=== PATIENT | male | born 1940 | race Caucasian/White ===

== ENCOUNTER → 2016-09-10 | Outpatient (CLI) | payer MEDICARE, OTHER ==
[2016-09-10 16:21] LABS: Blood Urea Nitrogen 24 mg/dL (9-20); Non-African American GFR(MDRD) >60 (>60 ml/min/1.73 sqM)
== END ==
LOC: LABWHC1 15:28
PROVIDERS: ATTEND Physical Medicine & Rehabilitation
DX: Z01.812 Encounter for preprocedural laboratory examination (principal); N28.9 Disorder of kidney and ureter, unspecified
CPT/HCPCS: 36415; 82565; 84520

== ENCOUNTER → 2018-04-22 | Outpatient (CLI) | payer MEDICARE, OTHER ==
[~2018-04-22] MED LIST: DENOSUMAB 60 MG/ML 1 ML SYRINGE SQ ONE
[2018-04-22 13:09] VITALS: BP 152/77; PULSE 67; RESP 16; TEMP 97.7
== END | disposition home or self-care (01) ==
LOC: PROCWHC3 12:49
PROVIDERS: ATTEND Internal Medicine
DX: M81.0 Age-related osteoporosis without current pathological fracture (principal)
CPT/HCPCS: 96372; J0897

== ENCOUNTER 2018-05-10 08:52 | Emergency (ER) | payer MEDICARE, OTHER ==
[2018-05-10 08:56] VITALS: BP 157/72; PULSE 72; RESP 18; TEMP 97.8
--- NOTE | 2018-05-10 09:07 | ED ---
General Adult HPI - General Chief complaint: Extremity Problem,Nontraumatic Stated complaint: Foot/Leg Swelling Time Seen by Provider: 05/10/18 09:00 Source: patient, RN notes reviewed Mode of arrival: wheelchair Limitations: no limitations - History of Present Illness Initial comments: Patient is a 77-year-old male presented to the emergency room today with a chief complaint of right ankle pain. Patient does admit that last night when up and felt fine woke up this morning went to put weight on the right ankle had pain. Does admit that his noticed some swelling when compared bilaterally. Denies any specific injury or trauma. He states that when he is resting has just a mild ankle when he tries to ambulate has increased pain that he feels in the ankle joint more on the lateral aspect. Patient denies any recent fever, chills, shortness of breath, chest pain, back pain, abdominal pain, nausea or vomiting, headaches or visual changes, or any other complaints. - Related Data Home Medications Medication Instructions Recorded Confirmed Alfuzosin HCl [Uroxatral ER] 10 mg PO BID 05/01/15 05/01/15 Cevimeline [Evoxac] 30 mg PO TID 05/01/15 05/01/15 Etodolac [Lodine] 400 mg PO BID 05/01/15 05/01/15 HYDROcodone/APAP 7.5-325MG [[place] 1 tab PO Q6HR PRN 05/01/15 05/01/15 7.5-325] Melatonin 3 mg PO HS PRN 05/01/15 05/01/15 Multivitamins, Thera [Multivitamin 1 tab PO DAILY@1200 05/01/15 05/01/15 (formulary)] cycloSPORINE [Restasis] 1 drop BOTH EYES BID 05/01/15 05/01/15 valACYclovir [Valtrex] 500 mg PO DAILY PRN 05/01/15 05/01/15 Previous Rx's Medication Instructions Recorded Albuterol Inhaler [Ventolin Hfa 1 - 2 puff INHALATION Q6HR PRN #1 05/04/15 Inhaler] inhaler Ipratropium [place] [Atrovent Hfa] 2 puff INHALATION QID #1 inhaler 05/04/15 Levofloxacin [Levaquin] 500 mg PO DAILY #5 tab 05/04/15 Allergies Allergy/AdvReac Type Severity Reaction Status Date / Time dipyridamole Allergy Anaphylaxis Verified 05/10/18 08:56 [From Persantine] Review of Systems ROS Statement: Those systems with pertinent positive or pertinent negative responses have been documented in the HPI. ROS Other: All systems not noted in ROS Statement are negative. Past Medical History Past Medical History: Cancer Additional Past Medical History / Comment(s): baretts esophagus, sojgrens, bladder cancer about 1994 History of Any Multi-Drug Resistant Organisms: None Reported Past Surgical History: Back Surgery, Joint Replacement, Orthopedic Surgery Additional Past Surgical History / Comment(s): left knee replacement, removed bladder ca Past Anesthesia/Blood Transfusion Reactions: No Reported Reaction Additional Past Anesthesia/Blood Transfusion Reaction / Comment(s): Never had either Past Psychological History: No Psychological Hx Reported Smoking Status: Former smoker Past Alcohol Use History: None Reported Past Drug Use History: None Reported - Past Family History Mother Family Medical History: No Reported History Father Family Medical History: No Reported History General Exam - General Exam Comments Initial Comments: General: The patient is awake and alert, in no distress, and does not appear acutely ill. Musculoskeletal: Patient does have some mild swelling down to the right ankle. No specific bony tenderness to the lateral or medial malleolus. No tenderness down into the right foot. Patient does have tenderness with inversion. Pedal pulses 2+. Sensation intact. Neurological: A&O x 3. CN II-XII intact, There are no obvious motor or sensory deficits. Coordination appears grossly intact. Speech is normal. Skin: Skin is warm and dry and no rashes or lesions are noted. Psychiatric: Normal mood and affect. Limitations: no limitations Course Vital Signs 05/10/18 08:54 Temperature 97.8 F Pulse Rate 72 Respiratory 18 Rate Blood Pressure 157/72 O2 Sat by Pulse 98 Oximetry Medical Decision Making - Medical Decision Making Patient's x-ray reviewed and is negative for any acute fracture dislocation. Results were discussed with the patient. Patient has mild swelling when compared bilaterally of the right ankle. There is no redness no sign of infection. Patient's vitals are stable. Patient will be discharged advised watch for any signs of infection. Advised follow-up family doctor/orthopedic over the next 2 days returning if symptoms increase or worsen. Disposition Clinical Impression: Ankle pain Disposition: HOME SELF-CARE Condition: Good Instructions: Swollen Joint (ED) Additional Instructions: Please use medication as discussed. Please follow-up with family doctor in the next 2-5 days of symptoms have not improved. Please return to emergency room if the symptoms increase or worsen or for any other concerns. Is patient prescribed a controlled substance at d/c from ED?: No Referrals: Timothy Arevalo MD [Primary Care Provider] - 1-2 days Time of Disposition: 09:41
--- NOTE | 2018-05-10 09:38 | XR ---
EXAMINATION TYPE: XR ankle complete RT , 3 VIEWS DATE OF EXAM ORDERED: 05/10/2018 HISTORY: Pain. COMPARISON: None. FINDINGS: No fracture, dislocation or ankle joint effusion is seen. There are mild degenerative meza es present in the talonavicular joint. IMPRESSION: 1. NO ACUTE OSSEOUS LESION. 2. MILD DEGENERATIVE CHANGE.
== END 2018-05-10 09:43 | disposition home or self-care (01) ==
LOC: EC 08:52
DX: M25.571 Pain in right ankle and joints of right foot (principal); M79.89 Other specified soft tissue disorders; Z85.51 Personal history of malignant neoplasm of bladder; Z96.652 Presence of left artificial knee joint; Z87.891 Personal history of nicotine dependence; Z79.1 Long term (current) use of non-steroidal anti-inflammatories (NSAID); Z79.899 Other long term (current) drug therapy; Z88.8 Allergy status to other drugs, medicaments and biological substances
CPT/HCPCS: 99283

== ENCOUNTER → 2018-07-20 | Day surgery (SDC) | payer MEDICARE, OTHER ==
[2018-07-16 11:32] VITALS: BMI 27.2
[~2018-07-20] MED LIST changes: -DENOSUMAB 60 MG/ML 1 ML SYRINGE SQ ONE; +LACTATED RINGERS 1,000 ML IV ONE; +LACTATED RINGERS 1,000 ML IV SCH; +LIDOCAINE 1% 20 ML VIAL (10MG/ML) FOR IV START INTRADERMA PRN; +LIDOCAINE 1% INJ 10MG/ML (20 ML MDV) ONE; +PROPOFOL 10 MG/ML 20 ML VIAL IV ONE
[2018-07-20 07:22] VITALS: TEMP 98.7
[2018-07-20 08:15] VITALS: RESP 16
--- NOTE | 2018-07-20 08:25 | P.PCN ---
Date of Procedure: 07/20/18 Procedure(s) Performed: Procedures: 1. Esophagogastroduodenoscopy and biopsy. 2. Total colonoscopy. Preoperative diagnosis: Epigastric pain, history of Contreras's esophagus and history of polyps. Postoperative diagnosis: 1. Hiatal hernia and Contreras's esophagus. 2. Mild gastritis. 3. Sigmoid diverticulosis. Preparation: HalfLytely prep. Sedation: Was provided by anesthesia. Brief clinical history: The patient is a 77-year-old male who is scheduled for this evaluation because of epigastric pain and history of Contreras's esophagus. There is also history of colon polyps. His last EGD and colonoscopy were in March 2013. The patient was seen in the office earlier this month and he has been complaining of epigastric discomfort but no other alarm symptoms. Procedure: With the patient on his left lateral decubitus position and after informed consent and adequate sedation, I passed the Olympus-GIF H 190 video upper endoscope through the cricopharyngeus down the esophagus. GE junction was irregular and started at around 36 cm from the incisors and the tubular esophagus continued for around 3-4 cm defining a segment of Contreras's esophagus. The esophagus did not show any erosions, ulcers or strictures. The endoscope was then passed through a 2 cm hiatal hernia to the rest of the stomach which was insufflated with air and inspected in detail including the retroflex view in the cardia. There was some mottling and erythema in the antrum but no ulcers or erosions. Pyloric channel, duodenal bulb, post bulbar area and descending duodenum appeared within normal limits. I obtained biopsies from the duodenum, antrum, esophagus including separate biopsies from the Contreras's segment then the endoscope was withdrawn and I proceeded to perform the colonoscopy. Perianal area did not show any fissures or fistulas. There were no masses felt on digital rectal examination. The Olympus CFH 190 H video colonoscope was then inserted in the rectum in the usual fashion and advanced to the cecum. The mucosa appeared healthy. No polyps or tumors were seen. Few diverticular orifices were seen scattered in the sigmoid but was no evidence of acute diverticulitis or strictures. No polyps or tumors were seen. I retroflexed the endoscope in the rectum before the endoscope was withdrawn. Low-grade internal hemorrhoids were noted with no evidence of bleeding. The patient tolerated the procedure well. Plan: The patient was reassured. Will await biopsy results. Discussed dietary measures. He will follow up with you as planned and I will keep you updated on his progress. I will consider a repeat upper endoscopy in 2-3 years depending on his overall health at that time.
[2018-07-20 08:36] VITALS: BP 128/73; PULSE 56
== END | disposition home or self-care (01) ==
LOC: ORWHC2ENDO 06:55
DX: K29.50 Unspecified chronic gastritis without bleeding (principal); K22.70 Barrett's esophagus without dysplasia; K44.9 Diaphragmatic hernia without obstruction or gangrene; K57.30 Diverticulosis of large intestine without perforation or abscess without bleeding; K64.8 Other hemorrhoids
CPT/HCPCS: 88305; 45378; 43239; J2001; J2704

== ENCOUNTER → 2018-09-11 | Outpatient (CLI) | payer MEDICARE, OTHER ==
[2018-09-11 12:06] LABS: Basophils # (A) 0.1 k/uL (0-0.2); Basophils % (A) 1 %; Eosinophils # (A) 0.1 k/uL (0-0.7); Eosinophils % (A) 2 %; HCT 37.3 % (39.0-53.0); HGB 12.2 gm/dL (13.0-17.5); Lymphocytes # (A) 2.4 k/uL (1.0-4.8); Lymphocytes % (A) 31 %; MCHC 32.8 g/dL (31.0-37.0); MCV 91.5 fL (80.0-100.0); Mean Platelet Volume 6.5; Monocytes # (A) 0.3 k/uL (0-1.0); Monocytes % (A) 5 %; Neutrophils # (A) 4.7 k/uL (1.3-7.7); Neutrophils % (A) 61 %; Platelet Count 273 k/uL (150-450); RBC 4.08 m/uL (4.30-5.90); RDW 13.3 % (11.5-15.5); WBC 7.7 k/uL (3.8-10.6)
[2018-09-11 18:53] LABS: Albumin/Globulin Ratio 2.22 (1.60-3.17); Anion Gap 5.8 mmol/L (4.00-12.00); Calcium 8.9 mg/dL (8.7-10.3); Carbon Dioxide 28.2 mmol/L (21.6-31.8); Globulin 1.8 g/dL (1.6-3.3); Potassium 4.5 mmol/L (3.5-5.5); Total Bilirubin 0.3 mg/dL (0.2-1.2); Total Protein 5.8 g/dL (6.2-8.2)
== END | disposition home or self-care (01) ==
LOC: LABWHC1 11:10
PROVIDERS: ATTEND Nurse Practitioner Acute Care
DX: E55.9 Vitamin D deficiency, unspecified (principal); R41.3 Other amnesia
CPT/HCPCS: 36415; 80053; 82306; 82607; 84207; 85025

== ENCOUNTER → 2018-10-23 | Outpatient (CLI) | payer MEDICARE, OTHER ==
[~2018-10-23] MED LIST changes: +DENOSUMAB 60 MG/ML 1 ML SYRINGE SQ NR; -LACTATED RINGERS 1,000 ML IV ONE; -LACTATED RINGERS 1,000 ML IV SCH; -LIDOCAINE 1% 20 ML VIAL (10MG/ML) FOR IV START INTRADERMA PRN; -LIDOCAINE 1% INJ 10MG/ML (20 ML MDV) ONE; -PROPOFOL 10 MG/ML 20 ML VIAL IV ONE
[2018-10-23 13:17] VITALS: BP 137/75; PULSE 65; RESP 16; TEMP 98.6
== END | disposition home or self-care (01) ==
LOC: PROCWHC3 12:50
PROVIDERS: ATTEND Internal Medicine
DX: M81.0 Age-related osteoporosis without current pathological fracture (principal)
CPT/HCPCS: 96372; J0897

== ENCOUNTER → 2019-04-08 | Outpatient (CLI) | payer MEDICARE, OTHER ==
[2019-04-08 15:36] LABS: Basophils % (A) 0 %; Eosinophils # (A) 0.1 k/uL (0-0.7); Eosinophils % (A) 2 %; HCT 37.9 % (39.0-53.0); HGB 12.5 gm/dL (13.0-17.5); Lymphocytes # (A) 1.8 k/uL (1.0-4.8); Lymphocytes % (A) 22 %; MCH 29.9 pg (25.0-35.0); MCHC 32.9 g/dL (31.0-37.0); MCV 90.8 fL (80.0-100.0); Mean Platelet Volume 6.8; Monocytes # (A) 0.5 k/uL (0-1.0); Monocytes % (A) 6 %; Neutrophils # (A) 5.6 k/uL (1.3-7.7); Neutrophils % (A) 68 %; Platelet Count 267 k/uL (150-450); RBC 4.17 m/uL (4.30-5.90); RDW 12.8 % (11.5-15.5); WBC 8.2 k/uL (3.8-10.6)
[2019-04-08 17:25] LABS: Erythrocyte Sedimentation Rate 79 mm/hr (0-15)
== END | disposition home or self-care (01) ==
LOC: LABWHC1 14:20
PROVIDERS: ATTEND Psychiatry & Neurology Neurology
DX: M13.0 Polyarthritis, unspecified (principal)
CPT/HCPCS: 36415; 85025; 85652; 86140

== ENCOUNTER → 2019-04-26 | Outpatient (CLI) | payer MEDICARE, OTHER ==
[~2019-04-26] MED LIST changes: -DENOSUMAB 60 MG/ML 1 ML SYRINGE SQ NR; +DENOSUMAB 60 MG/ML 1 ML SYRINGE SQ ONE
[2019-04-26 14:04] VITALS: BP 153/80; PULSE 67; RESP 18; TEMP 97.5
== END | disposition home or self-care (01) ==
LOC: PROCWHC3 13:47
PROVIDERS: ATTEND Internal Medicine
DX: M81.0 Age-related osteoporosis without current pathological fracture (principal)
CPT/HCPCS: 96372

== ENCOUNTER → 2019-11-02 | Outpatient (CLI) | payer MEDICARE, OTHER ==
[~2019-11-02] MED LIST changes: +DENOSUMAB 60 MG/ML 1 ML SYRINGE SQ NR; -DENOSUMAB 60 MG/ML 1 ML SYRINGE SQ ONE
[2019-11-02 15:09] VITALS: BP 155/73; PULSE 71; TEMP 98.4
== END | disposition home or self-care (01) ==
LOC: PROCWHC3 14:32
PROVIDERS: ATTEND Internal Medicine
DX: M81.0 Age-related osteoporosis without current pathological fracture (principal)
CPT/HCPCS: 96372; J0897

== ENCOUNTER → 2020-05-10 | Outpatient (CLI) | payer MEDICARE, OTHER ==
[2020-05-10 15:10] VITALS: BP 177/84; PULSE 75; RESP 18; TEMP 97.9
== END | disposition home or self-care (01) ==
LOC: PROCWHC3 14:22
PROVIDERS: ATTEND Internal Medicine
DX: M81.0 Age-related osteoporosis without current pathological fracture (principal)
CPT/HCPCS: 96372; J0897

== ENCOUNTER → 2020-08-22 | Outpatient (CLI) | payer MEDICARE, OTHER ==
[2020-08-22 13:12] LABS: HCT 35.7 % (39.0-53.0); HGB 11.8 gm/dL (13.0-17.5); MCH 30.7 pg (25.0-35.0); MCHC 33.1 g/dL (31.0-37.0); MCV 92.8 fL (80.0-100.0); Mean Platelet Volume 6.6; Platelet Count 224 k/uL (150-450); RBC 3.85 m/uL (4.30-5.90); RDW 13.7 % (11.5-15.5); WBC 5.7 k/uL (3.8-10.6)
== END | disposition home or self-care (01) ==
LOC: LABPAT 11:07
PROVIDERS: ATTEND Internal Medicine Cardiovascular Disease
DX: Z01.812 Encounter for preprocedural laboratory examination (principal); I34.0 Nonrheumatic mitral (valve) insufficiency
CPT/HCPCS: 36415; 80051; 82565; 84520; 85027

== ENCOUNTER → 2020-09-01 | Day surgery (SDC) | payer MEDICARE, OTHER ==
[2020-08-29 14:37] VITALS: BMI 26.9
[~2020-09-01] MED LIST changes: +ALPRAZolam 0.25 MG TAB PO PRN; +ALPRAZolam 0.5 MG TAB PO PRN; +ASPIRIN 325 MG TAB PO STA; +ASPIRIN 81 MG PO SCH; +ATORVASTATIN 80 MG TAB PO STA; -DENOSUMAB 60 MG/ML 1 ML SYRINGE SQ NR; +IOPAMIDOL-370 125ML BTL INJ ONE; +ISOSORBIDE MONONITRATE ER 30 MG TAB.ER.24H PO SCH; +LIDOCAINE 1% INJ 10MG/ML (20 ML MDV) ONE; +LIDOCAINE 1% INJ 10MG/ML (20 ML MDV) SQ ONE; +MIDAZOLAM 2 MG/2 ML VIAL IV ONE; +NITROGLYCERIN SL TABS 0.4 MG TAB SUBLINGUAL PRN; +RX INFO: IV CONTRAST WAS GIVEN 1 EACH MISC MISCELLANE PRN; +SODIUM CHLORIDE 0.9% 1,000 ML in EMPTY BAG 1 BAG IV ONE; +fentaNYL (PF) 50 MCG/ML 2 ML AMP IV ONE; +fentaNYL (PF) 50 MCG/ML 2 ML AMP ONE
[2020-09-01 06:39] VITALS: TEMP 97.6
[2020-09-01] MEDS: BENZOCAINE SPRAY 1 CAN TOPICAL ONE ×2 (07:09→07:27)
[2020-09-01 07:28] VITALS: RESP 16
--- NOTE | 2020-09-01 10:07 | CC ---
CARDIAC CATHETERIZATION REPORT INDICATION: Severe mitral regurgitation. PROCEDURE NOTE: After obtaining informed consent, left heart catheterization and coronary angiogram were performed via the right femoral artery using standard Femi catheters. Patient tolerated the procedure well without any obvious immediate complications. A femoral angiogram was performed and Angio-Seal will be deployed for hemostasis. Patient received moderate conscious sedation. Total sedation time was 21 minutes. FINDINGS: 1. HEMODYNAMICS: Left ventricular end-diastolic pressure is 14 mm. There is no significant gradient across the aortic valve. 2. LEFT VENTRICULOGRAM: Left ventriculogram is performed in SEGOVIA position shows normal left ventricular size and systolic function with an ejection fraction of 70% with 3+ mitral regurgitation. 3. ANGIOGRAPHIC DATA: Left Main Coronary Artery: Left main coronary artery appears calcified but is free of significant stenosis. Divides into left anterior descending coronary artery and circumflex coronary artery. Circumflex coronary artery is a nondominant vessel but this is a large caliber vessel that shows 95% stenosis in its ostial portion. The stenosis extends into the left main. LAD shows itef-xr-qtytkomi nonobstructive disease with a diagonal branch showing a 40% to 50% stenosis. Right coronary artery is a large dominant vessel, appears calcified with a focal stenosis in the proximal portion which is a 60% to 70% stenosis and mid RCA shows 40% to 50% stenosis. CONCLUSIONS: 1. Significant two-vessel coronary artery disease. 2. A 3+ mitral regurgitation. 3. Normal left ventricular systolic function. PLAN: Patient will be referred for mitral valve repair with surgical revascularization. MMODL / IJN: [id number] /
--- NOTE | 2020-09-01 10:10 | ECHOT ---
TRANSESOPHAGEAL ECHOCARDIOGRAM INDICATION: Mitral regurgitation. PROCEDURE NOTE: After obtaining informed consent, transesophageal echocardiogram was performed in left lateral position using an Omniplane probe. Local and IV sedation were obtained by 2 mg of Versed and 50 mcg of fentanyl. The patient tolerated the procedure well without any obvious immediate complications. Color Doppler contrast 2D and M-mode evaluation was performed. The patient received moderate conscious sedation. Total sedation time was 10 minutes. FINDINGS: 1. Mitral Valve: There is partial flail of the posterior mitral leaflet with mitral valve prolapse with severe anteriorly directed mitral regurgitation. There is reversal of flow into the pulmonary vein. 2. Left atrium appears mildly enlarged. Right atrium appears enlarged. 3. Right ventricle appears normal. Left ventricle has normal size and systolic function with an ejection fraction of 60%. 4. Aortic valve shows sclerotic changes with mild aortic regurgitation. 5. There is mild tricuspid regurgitation. 6. Interatrial Septum: There is no evidence of [id number]-zy-[id number] shunt by color-flow Doppler or [id number] shunt by agitated saline contrast study. 7. Aorta shows mild atherosclerotic changes. CONCLUSIONS: 1. Severe anteriorly directed mitral regurgitation secondary to partial flail of the posterior mitral leaflet. 2. Normal left ventricular systolic function. PLAN: Patient will undergo cardiac catheterization and will be referred to a cardiothoracic surgeon. MMODL / IJN: [id number] /
--- NOTE | 2020-09-01 10:16 | LTR ---
Ana 2020 Re: Timothy Stokes Dear Dr. Wilson: I performed WILLIAM and cardiac catheterization on Timothy Stokes, detailed reports are enclosed for your records. In brief, the patient has severe mitral regurgitation and significant two-vessel coronary artery disease. I will refer the patient to a cardiothoracic surgeon at [facility] as per patient's wishes. Thank you for giving me the privilege to participate in the care of this pleasant gentleman. Sincerely, MD JOHN Shankar / AMRIKN: [id number] /
[2020-09-01 10:28] VITALS: BP 134/62; PULSE 51
[2020-09-01 11:40] LABS: Cholesterol 221 mg/dL (<200); HDL Cholesterol 56 mg/dL (40-60); LDL Cholesterol,Calculated 133 mg/dL (0-99); Triglycerides 158 mg/dL (<150)
== END ==
LOC: CATHCVL 05:52
PROVIDERS: ATTEND Internal Medicine Cardiovascular Disease
DX: I25.10 Atherosclerotic heart disease of native coronary artery without angina pectoris (principal); I08.3 Combined rheumatic disorders of mitral, aortic and tricuspid valves; I70.0 Atherosclerosis of aorta; Z20.822 Contact with and (suspected) exposure to COVID-19; Z82.49 Family history of ischemic heart disease and other diseases of the circulatory system; Z87.891 Personal history of nicotine dependence; Z79.1 Long term (current) use of non-steroidal anti-inflammatories (NSAID); Z79.899 Other long term (current) drug therapy; Z88.8 Allergy status to other drugs, medicaments and biological substances
CPT/HCPCS: 93312; 93320; 93325; 93458; 80061; 87635; C1769 ×3; C1760; C1894; J2250; J2001; J3010; Q9967

== ENCOUNTER 2020-12-04 21:57 | Emergency (ER) | payer MEDICARE, OTHER ==
[2020-12-04 22:04] VITALS: TEMP 97.9
[2020-12-04] MEDS ORDERED: SODIUM CHLORIDE 0.9% 1,000 ML IV STA (22:08)
[2020-12-04] MEDS ORDERED: MORPHINE SULFATE 4 MG/ML SYRINGE IV STA (22:08)
--- NOTE | 2020-12-04 22:12 | ED ---
Chest Pain HPI - General Chief Complaint: Chest Pain Stated Complaint: High BP Time Seen by Provider: 12/04/20 22:08 Source: patient, RN notes reviewed, old records reviewed Mode of arrival: wheelchair - History of Present Illness Initial Comments: This is an 80-year-old male ti the ER for evaluation. Patient is presenting 3 weeks after CABG surgery [facility]. Patient has no fevers. No travel history. Patient is complaining of high blood pressure chest pressure heart racing. MD Complaint: chest pain, other (tachycardia, high BP) -: hour(s) Onset: during rest, during exertion Pain Location: substernal, left chest Pain Radiation: none Severity: moderate Severity scale (1-10): 4 Quality: tightness, heaviness Consistency: intermittent Improves With: nothing Worsens With: nothing Context: recent surgery (CABG 3 weeks) Anginal Symptoms: dyspnea Other Symptoms: palpitations Treatments Prior to Arrival: none - Related Data Home Medications Medication Instructions Recorded Confirmed Cevimeline [Evoxac] 30 mg PO TID 05/01/15 09/01/20 HYDROcodone/APAP 7.5-325MG [[place] 0.5 tab PO Q8HR PRN 05/01/15 09/01/20 7.5-325] Melatonin 5 mg PO HS PRN 05/01/15 09/01/20 Multivitamins, Thera [Multivitamin 1 tab PO DAILY@1200 05/01/15 09/01/20 (formulary)] cycloSPORINE [Restasis] 1 drop BOTH EYES BID 05/01/15 09/01/20 Alfuzosin HCl [Uroxatral] 10 mg PO DAILY 05/10/18 09/01/20 Gabapentin 300 mg PO BID 05/10/18 09/01/20 RABEprazole SODIUM [Aciphex] 20 mg PO DAILY 05/10/18 09/01/20 Finasteride [Proscar] 5 mg PO DAILY 07/16/18 09/01/20 Cyanocobalamin (Vitamin B-12) 1 tab PO BID 10/23/18 09/01/20 [Vitamin B-12] Krill/Om-3/Dha/Epa/Phospho/Ast 1 tab PO DAILY 10/23/18 09/01/20 [[place]-3 Krill Oil 300 mg Sfgl] Estazolam [Prosom] 1 mg PO HS PRN 04/26/19 08/29/20 Bromelain 1 tab PO DAILY 08/29/20 Cholecalciferol (Vitamin D3) 125 mcg PO TID 08/29/20 09/01/20 [Vitamin D3 (5000 Iu)] Etodolac [Lodine] 400 mg PO BID 08/29/20 09/01/20 Glucosamine/Chondr Rudd A Sod [Osteo 1 each PO DAILY 08/29/20 09/01/20 Bi-Flex Caplet] valACYclovir [Valtrex] 500 mg PO DAILY PRN 08/29/20 09/01/20 Allergies Allergy/AdvReac Type Severity Reaction Status Date / Time dipyridamole Allergy Anaphylaxis Verified 12/04/20 22:04 [From Persantine] levofloxacin AdvReac SEE NOTE Verified 12/04/20 22:04 Review of Systems ROS Statement: Those systems with pertinent positive or pertinent negative responses have been documented in the HPI. ROS Other: All systems not noted in ROS Statement are negative. EKG Findings - EKG Comments: EKG Findings:: EKG shows sinus rhythm 79 WI 218 QRS 140 QTc 460 Past Medical History Past Medical History: Cancer, GERD/Reflux, Prostate Disorder Additional Past Medical History / Comment(s): baretts esophagus, sjogrens, bladder cancer about 1994 History of Any Multi-Drug Resistant Organisms: None Reported Past Surgical History: Back Surgery, Joint Replacement, Orthopedic Surgery Additional Past Surgical History / Comment(s): left knee replacement, removed bladder ca, sara cataracts, epidural pain injections, pt had open heart surgery (October 2020) Past Anesthesia/Blood Transfusion Reactions: No Reported Reaction Additional Past Anesthesia/Blood Transfusion Reaction / Comment(s): Never had either Past Psychological History: Depression Smoking Status: Former smoker Past Alcohol Use History: None Reported Past Drug Use History: None Reported - Past Family History Mother Family Medical History: No Reported History Father Family Medical History: No Reported History General Exam General appearance: alert, in no apparent distress, anxious Head exam: Present: atraumatic, normocephalic, normal inspection Eye exam: Present: normal appearance, PERRL, EOMI. Absent: scleral icterus, conjunctival injection, periorbital swelling ENT exam: Present: normal exam, mucous membranes moist Neck exam: Present: normal inspection. Absent: tenderness, meningismus, lymphadenopathy Respiratory exam: Present: normal lung sounds bilaterally. Absent: respiratory distress, wheezes, rales, rhonchi, stridor Cardiovascular Exam: Present: regular rate, normal rhythm, normal heart sounds. Absent: systolic murmur, diastolic murmur, rubs, gallop, clicks GI/Abdominal exam: Present: soft, normal bowel sounds. Absent: distended, tenderness, guarding, rebound, rigid Extremities exam: Present: normal inspection, full ROM, normal capillary refill. Absent: tenderness, pedal edema, joint swelling, calf tenderness Back exam: Present: normal inspection Neurological exam: Present: alert, oriented X3, CN II-XII intact Psychiatric exam: Present: normal affect, normal mood Skin exam: Present: warm, dry, intact, normal color. Absent: rash Course Vital Signs 12/04/20 12/04/20 21:59 23:13 Temperature 97.9 F Pulse Rate 88 75 Respiratory 18 16 Rate Blood Pressure 186/87 146/86 O2 Sat by Pulse 100 98 Oximetry - Reevaluation(s) Reevaluation #1: 12/05/20 00:00 Medical records reviewed Reevaluation #2: 12/05/20 00:00 Patient is a symptomatic throughout ER stay Reevaluation #3: 12/05/20 00:00 Patient informed results questions answered - Consultations Consultation #1: Spoke with Dr. Steven, patient will follow-up on a phone call tomorrow Chest Pain MDM - MDM 80 male to the ER for evaluation patient Dese for evaluation regards to episode of chest pain tachycardia some anxiety and elevated blood pressure. Neurosensory normal here in the ER, patient feels well x-rays negative and he can be discharged home Disposition Clinical Impression: Chest pain, Atypical chest pain Disposition: HOME SELF-CARE Condition: Good Instructions (If sedation given, give patient instructions): Chest Pain (ED) Is patient prescribed a controlled substance at d/c from ED?: No Referrals: Anabelle Wilson MD [Primary Care Provider] - 1-2 days
[2020-12-04 22:33] LABS: Basophils % (A) 1 %; Eosinophils # (A) 0.3 k/uL (0-0.7); Eosinophils % (A) 4 %; HCT 32.2 % (39.0-53.0); HGB 10.7 gm/dL (13.0-17.5); Lymphocytes # (A) 1.9 k/uL (1.0-4.8); Lymphocytes % (A) 29 %; MCH 32.2 pg (25.0-35.0); MCHC 33.3 g/dL (31.0-37.0); MCV 96.8 fL (80.0-100.0); Monocytes # (A) 0.4 k/uL (0-1.0); Monocytes % (A) 5 %; Neutrophils # (A) 3.8 k/uL (1.3-7.7); Neutrophils % (A) 59 %; Platelet Count 313 k/uL (150-450); RBC 3.33 m/uL (4.30-5.90); RDW 14.4 % (11.5-15.5); WBC 6.4 k/uL (3.8-10.6)
[2020-12-04 22:44] LABS: Albumin 4.5 g/dL (3.5-5.0); Calcium 9.6 mg/dL (8.4-10.2); Phosphorus 4.5 mg/dL (2.5-4.5); Total Protein 6.9 g/dL (6.3-8.2)
[2020-12-04 22:51] LABS: INR 1.5 (<1.2); Prothrombin Time 15.2 sec (9.0-12.0)
--- NOTE | 2020-12-04 22:56 | XR ---
EXAMINATION TYPE: XR chest 2V DATE OF EXAM: 12/04/2020 COMPARISON: 05/01/2015 HISTORY: Weakness TECHNIQUE: 2 views FINDINGS: There is no heart failure nor confluent pneumonic infiltrate. Costophrenic angles are clear . There is neural stimulator in the thoracic spine. There are sternal wires. There are chest leads. IMPRESSION: No active cardiopulmonary disease. No adverse change.
[2020-12-04 23:14] VITALS: RESP 16
[2020-12-05 00:10] LABS: Appearance,Urine Clear (Clear); Bilirubin,Urine Negative (Negative); Blood,Urine Large (Negative); Color,Urine Yellow; Glucose,Urine (UA) Negative (Negative); Ketones,Urine Negative (Negative); Leukocyte Esterase,Urine Negative (Negative); Mucus,Urine Rare /hpf; Nitrite,Urine Negative (Negative); Protein,Urine 1+ (Negative); RBC,Urine <1 /hpf (0-5); Specific Gravity,Urine 1.012 (1.001-1.035); Urobilinogen,Urine <2.0 mg/dL (<2.0); WBC,Urine 1 /hpf (0-5)
[2020-12-05 00:18] VITALS: BP 162/81; PULSE 78
== END 2020-12-05 00:15 | disposition home or self-care (01) ==
LOC: EC 21:57
DX: R07.89 Other chest pain (principal); R00.0 Tachycardia, unspecified; R00.2 Palpitations; K21.9 Gastro-esophageal reflux disease without esophagitis; F32.9 Major depressive disorder, single episode, unspecified; Z87.891 Personal history of nicotine dependence
CPT/HCPCS: 36415; 71046; 80053; 81001; 82550; 83735; 83880; 84100; 84484; 85025; 85610; 85730; 93005; 96360; 96361; 99285

== ENCOUNTER → 2021-03-06 | Outpatient (CLI) | payer OTHER, MEDICARE ==
--- NOTE | 2021-03-07 11:26 | MM ---
Reason for exam: clinical finding. History: Patient history of other cancer. Physical Findings: Nurse Summary: 0.5cm nodule in the right breast at 3 o'clock (nurse ms). MG 3D Diag Mammo W/Cad BLAIR Bilateral CC and MLO view(s) were taken. There are scattered fibroglandular densities. There is no discrete abnormality. These results were verbally communicated with the patient and result sheet given to the patient on 03/06/21. ASSESSMENT: Incomplete: need additional imaging evaluation, BI-RAD 0 RECOMMENDATION: Ultrasound of the left breast. (palpable)
--- NOTE | 2021-03-07 11:28 | USB ---
Reason for exam: additional evaluation requested from abnormal screening. History: Patient history of other cancer. US Breast Limited LT Left limited breast ultrasound including focal area of concern, retroareolar and axilla demonstrates a 1.4cm hypoechoic probable gynecomastia at the posterior nipple, small degree. No significant cystic or solid lesion greater than 0.50cm. These results were verbally communicated with the patient and result sheet given to the patient on 03/06/21. ASSESSMENT: Benign, BI-RAD 2 RECOMMENDATION: Clinical management of both breasts. Manage patient on a clinical basis.
== END | disposition home or self-care (01) ==
LOC: RADMAMWWP 09:02
PROVIDERS: ATTEND Family Medicine
DX: N63.15 Unspecified lump in the right breast, overlapping quadrants (principal); Z85.89 Personal history of malignant neoplasm of other organs and systems
CPT/HCPCS: 77062; 77066

== ENCOUNTER → 2021-04-06 | Outpatient (CLI) | payer MEDICARE, OTHER ==
--- NOTE | 2021-04-06 12:33 | CT ---
EXAMINATION TYPE: CT lumbar spine wo con DATE OF EXAM: 04/06/2021 11:53 AM COMPARISON: None HISTORY: Low back pain. CT DLP: 1227.3 mGycm Automated exposure control for dose reduction was used. Unenhanced CT of the lumbar spine was performed. Bone and soft tissue window settings are submitted as well as coronal and sagittal reconstructions. L1-L2: Moderate disc space narrowing. Mild posterior disc bulge. No evidence for disc herniation or p rotrusion. No evidence for central stenosis. Severe facet joint arthropathy. Mild bilateral foraminal encroachment. L2-L3: Vacuum disc noted. Mild posterior disc bulge. No central stenosis or disc herniation. Severe f acet joint arthropathy. Moderate bilateral foraminal encroachment. L3-L4: Vacuum disc noted. Posterior disc bulge. Hypertrophy ligamentum flavum and facet joint arthrop athy contribute to mild central stenosis. Bilateral foraminal encroachment. L4-L5: Vacuum disc noted. Grade 1 anterolisthesis L4 and L5 of 4 mm. Decompressive laminectomy change . No definite evidence for recurrent or residual disease. L5-S1: Moderate disc space narrowing. Posterior disc bulge. Mild effacement ventral thecal sac. Right lateral recess stenosis and right foraminal encroachment. IMPRESSION: 1. Multilevel degenerative disc disease. 2. Mild central stenosis at L3-L4. 3. foraminal encroachment as outlined above. 4. Decompressive laminectomy L4-5.
== END | disposition home or self-care (01) ==
LOC: RADCTMAIN 11:29
PROVIDERS: ATTEND Psychiatry & Neurology Neurology
DX: M51.36 Other intervertebral disc degeneration, lumbar region (principal); M48.061 Spinal stenosis, lumbar region without neurogenic claudication
CPT/HCPCS: 72131

== ENCOUNTER → 2021-10-10 | Outpatient (CLI) | payer MEDICARE, OTHER ==
[2021-10-10 16:01] LABS: African American GFR (CKD) 52.1 (60.0-200.0); Albumin 4.4 g/dL (3.8-4.9); Albumin/Globulin Ratio 2.24 (1.60-3.17); Anion Gap 9.9 mmol/L (10.00-18.00); BUN/Creat Ratio 23.29 Ratio (12.00-20.00); Blood Urea Nitrogen 33.3 mg/dL (9.0-27.0); Calcium 9.8 mg/dL (8.7-10.3); Carbon Dioxide 28.6 mmol/L (20.0-27.5); Potassium 4.3 mmol/L (3.5-5.5); Total Bilirubin 0.4 mg/dL (0.30-1.20); Total Protein 6.4 g/dL (6.2-8.2)
== END | disposition home or self-care (01) ==
LOC: LABWHC1 09:31
PROVIDERS: ATTEND Family Medicine
DX: Z51.81 Encounter for therapeutic drug level monitoring (principal)
CPT/HCPCS: 36415; 80053

== ENCOUNTER → 2021-10-26 | Outpatient (CLI) | payer MEDICARE, OTHER ==
[~2021-10-26] MED LIST changes: -ALPRAZolam 0.25 MG TAB PO PRN; -ALPRAZolam 0.5 MG TAB PO PRN; -ASPIRIN 325 MG TAB PO STA; -ASPIRIN 81 MG PO SCH; -ATORVASTATIN 80 MG TAB PO STA; -IOPAMIDOL-370 125ML BTL INJ ONE; -ISOSORBIDE MONONITRATE ER 30 MG TAB.ER.24H PO SCH; -LIDOCAINE 1% INJ 10MG/ML (20 ML MDV) ONE; -LIDOCAINE 1% INJ 10MG/ML (20 ML MDV) SQ ONE; -MIDAZOLAM 2 MG/2 ML VIAL IV ONE; -NITROGLYCERIN SL TABS 0.4 MG TAB SUBLINGUAL PRN; -RX INFO: IV CONTRAST WAS GIVEN 1 EACH MISC MISCELLANE PRN; -SODIUM CHLORIDE 0.9% 1,000 ML in EMPTY BAG 1 BAG IV ONE; +SODIUM CHLORIDE 0.9% 500 ML 500 ML in EMPTY BAG 1 BAG IV PRN; +ZOLEDRONIC ACID 5 MG in SODIUM CHLORIDE 0.9% 100 ML IV NR; -fentaNYL (PF) 50 MCG/ML 2 ML AMP IV ONE; -fentaNYL (PF) 50 MCG/ML 2 ML AMP ONE
[2021-10-26 13:57] VITALS: BP 153/78; PULSE 71; RESP 16; TEMP 98.3
== END ==
LOC: PROCWHC3 13:18
PROVIDERS: ATTEND Family Medicine
DX: M81.0 Age-related osteoporosis without current pathological fracture (principal); Z88.1 Allergy status to other antibiotic agents; Z88.8 Allergy status to other drugs, medicaments and biological substances; Z87.891 Personal history of nicotine dependence
CPT/HCPCS: 96365; J3489

== ENCOUNTER 2021-10-27 02:46 | Emergency (ER) | payer MEDICARE, OTHER ==
[2021-10-27 02:54] VITALS: TEMP 98.3
[2021-10-27] MEDS ORDERED: IBUPROFEN 600 MG TAB PO STA (03:28)
[2021-10-27 04:31] LABS: Basophils % (A) 0 %; Eosinophils # (A) 0.1 k/uL (0-0.7); Eosinophils % (A) 1 %; HCT 40.3 % (39.0-53.0); HGB 13.5 gm/dL (13.0-17.5); Lymphocytes # (A) 1.1 k/uL (1.0-4.8); Lymphocytes % (A) 11 %; MCHC 33.6 g/dL (31.0-37.0); MCV 92.3 fL (80.0-100.0); Mean Platelet Volume 6.7; Monocytes # (A) 0.4 k/uL (0-1.0); Monocytes % (A) 4 %; Neutrophils # (A) 8.1 k/uL (1.3-7.7); Neutrophils % (A) 84 %; Platelet Count 216 k/uL (150-450); RBC 4.36 m/uL (4.30-5.90); RDW 12.4 % (11.5-15.5); WBC 9.7 k/uL (3.8-10.6)
[2021-10-27 04:39] LABS: Appearance,Urine Clear (Clear); Bilirubin,Urine Negative (Negative); Blood,Urine Negative (Negative); Color,Urine Light Yellow; Glucose,Urine (UA) Negative (Negative); Ketones,Urine Negative (Negative); Leukocyte Esterase,Urine Negative (Negative); Nitrite,Urine Negative (Negative); Protein,Urine Negative (Negative); Urobilinogen,Urine <2.0 mg/dL (<2.0)
[2021-10-27 04:42] LABS: Calcium 9.3 mg/dL (8.4-10.2)
[2021-10-27 04:51] LABS: Albumin 4.9 g/dL (3.5-5.0); Potassium 5.2 mmol/L (3.5-5.1); Total Bilirubin 0.9 mg/dL (0.2-1.3); Total Protein 7.8 g/dL (6.3-8.2)
--- NOTE | 2021-10-27 05:31 | XR ---
EXAM: XR Chest, 2 Views CLINICAL HISTORY: ITS.REASON XR Reason: chills TECHNIQUE: Frontal and lateral views of the chest. COMPARISON: 12/04/2020 FINDINGS: Lungs: Unremarkable. No consolidation. Pleural space: Unremarkable. No pneumothorax. Heart: Mild aortic arch calcifications. Median sternotomy wires in place. No cardiomegaly. Mediastinum: Unremarkable. Bones/joints: Unremarkable. Partially visualized thoracic spine stimulator leads overlying the lower thoracic spine IMPRESSION: No acute pulmonary process.
--- NOTE | 2021-10-27 05:54 | ED ---
General Adult HPI - General Chief complaint: Recheck/Abnormal Lab/Rx Stated complaint: Reaction to infusion Time Seen by Provider: 10/27/21 03:03 Source: patient Mode of arrival: ambulatory Limitations: no limitations - History of Present Illness Initial comments: Patient is an 81-year-old man here to have evaluation for feeling myalgias, generalized weakness and fatigue as well as chills. The patient reports that he had come to the [facility] earlier to have an infusion though he does not recall the exact infusion that was given. He is not able to give any specific symptoms suggestive of infection, no congestion, sore throat, rhinorrhea. No cough or dyspnea. No nausea or vomiting. No change in urination. No rash. -: hour(s) Severity scale (1-10): 0 Consistency: constant Improves with: none Worsens with: none Associated Symptoms: fever/chills (Chills) - Related Data Home Medications Medication Instructions Recorded Confirmed Cevimeline [Evoxac] 30 mg PO TID 05/01/15 09/01/20 HYDROcodone/APAP 7.5-325MG [[place] 0.5 tab PO Q8HR PRN 05/01/15 09/01/20 7.5-325] Multivitamins, Thera [Multivitamin 1 tab PO DAILY@1200 05/01/15 09/01/20 (formulary)] cycloSPORINE [Restasis] 1 drop BOTH EYES BID 05/01/15 09/01/20 Finasteride [Proscar] 5 mg PO DAILY 07/16/18 09/01/20 Cyanocobalamin (Vitamin B-12) 1 tab PO BID 10/23/18 09/01/20 [Vitamin B-12] Krill/Om-3/Dha/Epa/Phospho/Ast 1 tab PO DAILY 10/23/18 09/01/20 [[place]-3 Krill Oil 300 mg Sfgl] Cholecalciferol (Vitamin D3) 125 mcg PO TID 08/29/20 09/01/20 [Vitamin D3 (5000 Iu)] Glucosamine/Chondr Rudd A Sod [Osteo 1 each PO DAILY 08/29/20 09/01/20 Bi-Flex Caplet] valACYclovir HCL [Valtrex] 500 mg PO DAILY PRN 08/29/20 09/01/20 Acetaminophen Tab [Tylenol] PRN 10/26/21 Aspirin 81 mg PO DAILY PRN 10/26/21 10/26/21 Metoprolol Succinate [Metoprolol 25 mg PO DAILY 10/26/21 10/26/21 Succinate ER] Propylene Glycol [Systane Complete] PRN 10/26/21 RABEprazole SODIUM [Aciphex] 20 mg pe PO PRN 10/26/21 traZODone HCL [Desyrel] 50 mg PO 10/26/21 Allergies Allergy/AdvReac Type Severity Reaction Status Date / Time dipyridamole Allergy Anaphylaxis Verified 10/27/21 02:49 [From Persantine] levofloxacin AdvReac SEE NOTE Verified 10/27/21 02:49 Review of Systems ROS Statement: Those systems with pertinent positive or pertinent negative responses have been documented in the HPI. ROS Other: All systems not noted in ROS Statement are negative. Constitutional: Reports: chills, weakness Eyes: Denies: eye discharge, vision change ENT: Denies: throat pain, congestion Respiratory: Denies: cough, dyspnea Cardiovascular: Denies: chest pain, palpitations, edema Gastrointestinal: Denies: abdominal pain, nausea, vomiting, diarrhea Genitourinary: Denies: dysuria, frequency, hematuria Musculoskeletal: Denies: back pain Skin: Denies: rash Neurological: Denies: headache, weakness, numbness Past Medical History Past Medical History: Cancer, GERD/Reflux, Prostate Disorder Additional Past Medical History / Comment(s): baretts esophagus, sjogrens, bladder cancer about 1994 History of Any Multi-Drug Resistant Organisms: None Reported Past Surgical History: Back Surgery, Joint Replacement, Orthopedic Surgery Additional Past Surgical History / Comment(s): left knee replacement, removed bladder ca, sara cataracts, epidural pain injections, pt had open heart surgery (October 2020) Past Anesthesia/Blood Transfusion Reactions: No Reported Reaction Additional Past Anesthesia/Blood Transfusion Reaction / Comment(s): Never had either Past Psychological History: Depression Smoking Status: Former smoker - Past Family History Mother Family Medical History: No Reported History Father Family Medical History: No Reported History General Exam Limitations: no limitations General appearance: alert, in no apparent distress Head exam: Present: atraumatic, normocephalic Eye exam: Present: normal appearance. Absent: scleral icterus, conjunctival injection ENT exam: Present: normal oropharynx Neck exam: Present: normal inspection Respiratory exam: Present: normal lung sounds bilaterally. Absent: respiratory distress, wheezes, rales, rhonchi, stridor Cardiovascular Exam: Present: regular rate, normal rhythm, normal heart sounds. Absent: systolic murmur, diastolic murmur, rubs, gallop GI/Abdominal exam: Present: soft. Absent: distended, tenderness, guarding, rebound, rigid, mass Extremities exam: Present: normal inspection, normal capillary refill. Absent: pedal edema, calf tenderness Back exam: Present: normal inspection. Absent: CVA tenderness (R), CVA tenderness (L) Neurological exam: Present: alert Skin exam: Present: warm, dry, intact, normal color. Absent: rash Course Vital Signs 10/27/21 10/27/21 02:49 06:22 Temperature 98.3 F Pulse Rate 83 79 Respiratory 16 18 Rate Blood Pressure 148/80 132/84 O2 Sat by Pulse 98 97 Oximetry Medical Decision Making - Medical Decision Making Patient is an 81-year-old man presenting with onset of chills, but no other symptoms of focal infection. The workup does not reveal a source area on reevaluation, patient is feeling well and would like to go home. Cultures are pending and I discussed with patient that he should have close follow-up and return here if any new symptoms develop or if he is not feeling right tomorrow. - Lab Data Result diagrams: 10/27/21 03:58 10/27/21 03:58 Lab Results 10/27/21 10/27/21 10/27/21 Range/Units 03:58 03:58 03:58 WBC 9.7 (3.8-10.6) k/uL RBC 4.36 (4.30-5.90) m/uL Hgb 13.5 (13.0-17.5) gm/dL Hct 40.3 (39.0-53.0) % MCV 92.3 (80.0-100.0) fL MCH 31.0 (25.0-35.0) pg MCHC 33.6 (31.0-37.0) g/dL RDW 12.4 (11.5-15.5) % Plt Count 216 (150-450) k/uL MPV 6.7 Neutrophils % 84 % Lymphocytes % 11 % Monocytes % 4 % Eosinophils % 1 % Basophils % 0 % Neutrophils # 8.1 H (1.3-7.7) k/uL Lymphocytes # 1.1 (1.0-4.8) k/uL Monocytes # 0.4 (0-1.0) k/uL Eosinophils # 0.1 (0-0.7) k/uL Basophils # 0.0 (0-0.2) k/uL Sodium 134 L (137-145) mmol/L Potassium 5.2 H (3.5-5.1) mmol/L Chloride 97 L (98-107) mmol/L Carbon Dioxide 29 (22-30) mmol/L Anion Gap 8 mmol/L BUN 31 H (9-20) mg/dL Creatinine 1.21 (0.66-1.25) mg/dL Est GFR (CKD-EPI)AfAm 64 (>60 ml/min/1.73 sqM) Est GFR (CKD-EPI)NonAf 55 (>60 ml/min/1.73 sqM) Glucose 83 (74-99) mg/dL Plasma Lactic Acid Frank 1.4 (0.7-2.0) mmol/L Calcium 9.3 (8.4-10.2) mg/dL Total Bilirubin 0.9 (0.2-1.3) mg/dL AST 51 (17-59) U/L ALT 20 (4-49) U/L Alkaline Phosphatase 92 (38-126) U/L Total Protein 7.8 (6.3-8.2) g/dL Albumin 4.9 (3.5-5.0) g/dL Urine Color Urine Appearance (Clear) Urine pH (5.0-8.0) Ur Specific [place] (1.001-1.035) Urine Protein (Negative) Urine Glucose (UA) (Negative) Urine Ketones (Negative) Urine Blood (Negative) Urine Nitrite (Negative) Urine Bilirubin (Negative) Urine Urobilinogen (<2.0) mg/dL Ur Leukocyte Esterase (Negative) Coronavirus (PCR) (Not Detectd) Influenza Type A RNA (Not Detectd) Influenza Type B (PCR) (Not Detectd) 10/27/21 10/27/21 10/27/21 Range/Units 03:58 03:58 04:21 WBC (3.8-10.6) k/uL RBC (4.30-5.90) m/uL Hgb (13.0-17.5) gm/dL Hct (39.0-53.0) % MCV (80.0-100.0) fL MCH (25.0-35.0) pg MCHC (31.0-37.0) g/dL RDW (11.5-15.5) % Plt Count (150-450) k/uL MPV Neutrophils % % Lymphocytes % % Monocytes % % Eosinophils % % Basophils % % Neutrophils # (1.3-7.7) k/uL Lymphocytes # (1.0-4.8) k/uL Monocytes # (0-1.0) k/uL Eosinophils # (0-0.7) k/uL Basophils # (0-0.2) k/uL Sodium (137-145) mmol/L Potassium (3.5-5.1) mmol/L Chloride (98-107) mmol/L Carbon Dioxide (22-30) mmol/L Anion Gap mmol/L BUN (9-20) mg/dL Creatinine (0.66-1.25) mg/dL Est GFR (CKD-EPI)AfAm (>60 ml/min/1.73 sqM) Est GFR (CKD-EPI)NonAf (>60 ml/min/1.73 sqM) Glucose (74-99) mg/dL Plasma Lactic Acid Frank (0.7-2.0) mmol/L Calcium (8.4-10.2) mg/dL Total Bilirubin (0.2-1.3) mg/dL AST (17-59) U/L ALT (4-49) U/L Alkaline Phosphatase (38-126) U/L Total Protein (6.3-8.2) g/dL Albumin (3.5-5.0) g/dL Urine Color Light Yellow Urine Appearance Clear (Clear) Urine pH 6.0 (5.0-8.0) Ur Specific [place] 1.010 (1.001-1.035) Urine Protein Negative (Negative) Urine Glucose (UA) Negative (Negative) Urine Ketones Negative (Negative) Urine Blood Negative (Negative) Urine Nitrite Negative (Negative) Urine Bilirubin Negative (Negative) Urine Urobilinogen <2.0 (<2.0) mg/dL Ur Leukocyte Esterase Negative (Negative) Coronavirus (PCR) Not Detected (Not Detectd) Influenza Type A RNA Not Detected (Not Detectd) Influenza Type B (PCR) Not Detected (Not Detectd) Disposition Clinical Impression: Chills Disposition: HOME SELF-CARE Condition: Good Instructions (If sedation given, give patient instructions): Fever in Adults (ED) Is patient prescribed a controlled substance at d/c from ED?: No Referrals: Anabelle Wilson MD [Primary Care Provider] - 1-2 days Time of Disposition: 05:40
[2021-10-27 06:24] VITALS: BP 132/84; PULSE 79; RESP 18
== END 2021-10-27 06:26 | disposition home or self-care (01) ==
LOC: EC 02:46
DX: R68.83 Chills (without fever) (principal); Z20.822 Contact with and (suspected) exposure to COVID-19; K21.9 Gastro-esophageal reflux disease without esophagitis; F32.A Depression, unspecified; Z87.891 Personal history of nicotine dependence; Z79.82 Long term (current) use of aspirin; Z79.899 Other long term (current) drug therapy
CPT/HCPCS: 36415; 71046; 80053; 81003; 83605; 85025; 87040; 87502; 87635; 99285

== ENCOUNTER 2022-04-12 17:40 | Emergency (ER) | payer MEDICARE, OTHER ==
[2022-04-12 17:50] VITALS: TEMP 98
[2022-04-12] MEDS ORDERED: cloNIDine HCL 0.1 MG TAB PO STA (19:25)
[2022-04-12] MEDS ORDERED: LIDOCAINE VISCOUS 2% 15 ML CUP MUCOUS MEM STA (19:26)
[2022-04-12] MEDS ORDERED: KETOROLAC 15 MG/ML 1 ML VIAL IM STA (19:26)
[2022-04-12 19:54] LABS: Basophils # (A) 0.1 k/uL (0-0.2); Basophils % (A) 1 %; Eosinophils # (A) 0.1 k/uL (0-0.7); Eosinophils % (A) 2 %; HCT 35.8 % (39.0-53.0); HGB 12.7 gm/dL (13.0-17.5); Lymphocytes # (A) 1.6 k/uL (1.0-4.8); Lymphocytes % (A) 26 %; MCH 31.7 pg (25.0-35.0); MCHC 35.4 g/dL (31.0-37.0); MCV 89.6 fL (80.0-100.0); Monocytes # (A) 0.4 k/uL (0-1.0); Monocytes % (A) 6 %; Neutrophils # (A) 3.9 k/uL (1.3-7.7); Neutrophils % (A) 63 %; Platelet Count 218 k/uL (150-450); RBC 3.99 m/uL (4.30-5.90); RDW 12.3 % (11.5-15.5); WBC 6.1 k/uL (3.8-10.6)
[2022-04-12 20:02] LABS: Albumin 4.1 g/dL (3.5-5.0); Calcium 9.4 mg/dL (8.4-10.2); Potassium 4.1 mmol/L (3.5-5.1); Total Bilirubin 0.3 mg/dL (0.2-1.3); Total Protein 6.5 g/dL (6.3-8.2)
[2022-04-12 20:23] VITALS: RESP 18
--- NOTE | 2022-04-12 20:41 | XR ---
EXAMINATION TYPE: XR chest 2V DATE OF EXAM: 04/12/2022 8:05 PM COMPARISON: Chest radiographs from 10/27/2021 TECHNIQUE: XR chest 2V Frontal and lateral views of the chest. CLINICAL INDICATION:Male, 81 years old with history of sob; FINDINGS: Lungs/Pleura: Prominent interstitial lung markings are seen scattered throughout the lungs. No eviden ce of focal consolidation, pneumothorax or pleural effusion. Pulmonary vascularity: Unremarkable. Heart/mediastinum: Cardiomediastinal silhouette is unremarkable. Musculoskeletal: Multiple level degenerative disc disease changes seen throughout the spine. Midline sternotomy wires are noted. Spinal stimulator device leads projecting over the heart. IMPRESSION: Chronic changes without acute pulmonary process. No significant change from prior.
--- NOTE | 2022-04-12 21:24 | ED ---
General Adult HPI - General Chief complaint: Recheck/Abnormal Lab/Rx Stated complaint: Hypertension Time Seen by Provider: 04/12/22 19:00 Source: patient Mode of arrival: wheelchair - History of Present Illness Initial comments: Patient is an 81-year-old male who presents to the emergency department with a chief complaint of high blood pressure. According to patient his blood pressure was 189/86 this evening. He states his blood pressure is normally in the 140 to 150s/80s. He denies chest pain and shortness of breath currently but does report mild shortness of breath throughout the night. Denies fever, chills, upper respiratory symptoms, cough. Denies headache, lightheadedness, dizziness, blurry vision, double vision. Patient takes metoprolol 25 mg in the morning and losartan 25 mg at night. - Related Data Home Medications Medication Instructions Recorded Confirmed Cevimeline [Evoxac] 30 mg PO TID 05/01/15 09/01/20 HYDROcodone/APAP 7.5-325MG [[place] 0.5 tab PO Q8HR PRN 05/01/15 09/01/20 7.5-325] Multivitamins, Thera [Multivitamin 1 tab PO DAILY@1200 05/01/15 09/01/20 (formulary)] cycloSPORINE [Restasis] 1 drop BOTH EYES BID 05/01/15 09/01/20 Finasteride [Proscar] 5 mg PO DAILY 07/16/18 09/01/20 Cyanocobalamin (Vitamin B-12) 1 tab PO BID 10/23/18 09/01/20 [Vitamin B-12] Krill/Om-3/Dha/Epa/Phospho/Ast 1 tab PO DAILY 10/23/18 09/01/20 [[place]-3 Krill Oil 300 mg Sfgl] Cholecalciferol (Vitamin D3) 125 mcg PO TID 08/29/20 09/01/20 [Vitamin D3 (5000 Iu)] Glucosamine/Chondr Rudd A Sod [Osteo 1 each PO DAILY 08/29/20 09/01/20 Bi-Flex Caplet] valACYclovir HCL [Valtrex] 500 mg PO DAILY PRN 08/29/20 09/01/20 Acetaminophen Tab [Tylenol] PRN 10/26/21 Aspirin 81 mg PO DAILY PRN 10/26/21 10/26/21 Metoprolol Succinate [Metoprolol 25 mg PO DAILY 10/26/21 10/26/21 Succinate ER] Propylene Glycol [Systane Complete] PRN 10/26/21 RABEprazole SODIUM [Aciphex] 20 mg pe PO PRN 10/26/21 traZODone HCL [Desyrel] 50 mg PO 10/26/21 Allergies Allergy/AdvReac Type Severity Reaction Status Date / Time dipyridamole Allergy Anaphylaxis Verified 10/27/21 02:49 [From Persantine] [place] Allergy Anaphylaxis Verified 04/12/22 17:50 levofloxacin AdvReac SEE NOTE Verified 10/27/21 02:49 Review of Systems ROS Statement: Those systems with pertinent positive or pertinent negative responses have been documented in the HPI. ROS Other: All systems not noted in ROS Statement are negative. Past Medical History Past Medical History: Cancer, GERD/Reflux, Hypertension, Prostate Disorder Additional Past Medical History / Comment(s): baretts esophagus, sjogrens, bladder cancer about 1994, chronic back pain History of Any Multi-Drug Resistant Organisms: None Reported Past Surgical History: Back Surgery, Joint Replacement, Orthopedic Surgery Additional Past Surgical History / Comment(s): left knee replacement, removed bladder ca, sara cataracts, epidural pain injections, pt had open heart surgery (October 2020) Past Anesthesia/Blood Transfusion Reactions: No Reported Reaction Additional Past Anesthesia/Blood Transfusion Reaction / Comment(s): Never had either Past Psychological History: Depression Smoking Status: Former smoker - Past Family History Mother Family Medical History: No Reported History Father Family Medical History: No Reported History General Exam General appearance: alert, in no apparent distress Head exam: Present: atraumatic, normocephalic, normal inspection Eye exam: Present: normal appearance, PERRL, EOMI. Absent: scleral icterus, conjunctival injection, periorbital swelling Neck exam: Present: normal inspection. Absent: tenderness, meningismus, lymphadenopathy Respiratory exam: Present: normal lung sounds bilaterally. Absent: respiratory distress, wheezes, rales, rhonchi, stridor Cardiovascular Exam: Present: regular rate, normal rhythm, normal heart sounds. Absent: systolic murmur, diastolic murmur, rubs, gallop, clicks Extremities exam: Present: normal capillary refill. Absent: pedal edema Neurological exam: Present: alert, oriented X3, CN II-XII intact Psychiatric exam: Present: normal affect, normal mood Skin exam: Present: warm, dry, intact, normal color. Absent: rash Course Vital Signs 04/12/22 04/12/22 04/12/22 17:47 20:23 21:43 Temperature 98.0 F Pulse Rate 81 66 68 Respiratory 16 18 18 Rate Blood Pressure 177/89 144/84 140/80 O2 Sat by Pulse 94 L 95 97 Oximetry EKG Findings - EKG Comments: EKG Findings:: EKG taken at 20:41, interpreted by me. Sinus rhythm with occasional ventricular premature complexes, old right bundle-branch block, no ST segment or T-wave abnormalities. Ventricular rate 66. OK interval 209. QRS duration 137. QTc 409 Medical Decision Making - Medical Decision Making This is an 81-year-old male presenting with high blood pressure. Blood pressure is 177/89. EKG obtained and interpreted by me which shows sinus rhythm with occasional ventricular premature complexes, old right bundle-branch block, no ST segment or T-wave abnormality. Laboratory studies obtained. Kidney function is normal. Troponin is within normal limits. This x-ray obtained interpreted by me which was chronic changes without acute pulmonary process. Catapres given. Blood pressure improved to 144/84. Results discussed with patient. Patient looks well, no end organ damage-it is reasonable for him to be discharged with follow-up with primary care on Friday. Patient consistently adamant that he wants blood pressure medication. We spoke about this several times in detail. Patient advised to take a second dose of metoprolol if his blood pressure reaches > 160/100. Patient to follow-up with his primary care provider. Dr. Self is my attending. - Lab Data Result diagrams: 04/12/22 19:36 04/12/22 19:36 Lab Results 04/12/22 04/12/22 04/12/22 Range/Units 19:36 19:36 19:36 WBC 6.1 (3.8-10.6) k/uL RBC 3.99 L (4.30-5.90) m/uL Hgb 12.7 L (13.0-17.5) gm/dL Hct 35.8 L (39.0-53.0) % MCV 89.6 (80.0-100.0) fL MCH 31.7 (25.0-35.0) pg MCHC 35.4 (31.0-37.0) g/dL RDW 12.3 (11.5-15.5) % Plt Count 218 (150-450) k/uL MPV 7.0 Neutrophils % 63 % Lymphocytes % 26 % Monocytes % 6 % Eosinophils % 2 % Basophils % 1 % Neutrophils # 3.9 (1.3-7.7) k/uL Lymphocytes # 1.6 (1.0-4.8) k/uL Monocytes # 0.4 (0-1.0) k/uL Eosinophils # 0.1 (0-0.7) k/uL Basophils # 0.1 (0-0.2) k/uL Sodium 134 L (137-145) mmol/L Potassium 4.1 (3.5-5.1) mmol/L Chloride 100 (98-107) mmol/L Carbon Dioxide 29 (22-30) mmol/L Anion Gap 5 mmol/L BUN 29 H (9-20) mg/dL Creatinine 1.07 (0.66-1.25) mg/dL Est GFR (CKD-EPI)AfAm 74 (>60 ml/min/1.73 sqM) Est GFR (CKD-EPI)NonAf 64 (>60 ml/min/1.73 sqM) Glucose 95 (74-99) mg/dL Calcium 9.4 (8.4-10.2) mg/dL Total Bilirubin 0.3 (0.2-1.3) mg/dL AST 24 (17-59) U/L ALT 17 (4-49) U/L Alkaline Phosphatase 86 (38-126) U/L Troponin I <0.012 (0.000-0.034) ng/mL Total Protein 6.5 (6.3-8.2) g/dL Albumin 4.1 (3.5-5.0) g/dL Coronavirus (PCR) (Not Detectd) 04/12/22 Range/Units 19:36 WBC (3.8-10.6) k/uL RBC (4.30-5.90) m/uL Hgb (13.0-17.5) gm/dL Hct (39.0-53.0) % MCV (80.0-100.0) fL MCH (25.0-35.0) pg MCHC (31.0-37.0) g/dL RDW (11.5-15.5) % Plt Count (150-450) k/uL MPV Neutrophils % % Lymphocytes % % Monocytes % % Eosinophils % % Basophils % % Neutrophils # (1.3-7.7) k/uL Lymphocytes # (1.0-4.8) k/uL Monocytes # (0-1.0) k/uL Eosinophils # (0-0.7) k/uL Basophils # (0-0.2) k/uL Sodium (137-145) mmol/L Potassium (3.5-5.1) mmol/L Chloride (98-107) mmol/L Carbon Dioxide (22-30) mmol/L Anion Gap mmol/L BUN (9-20) mg/dL Creatinine (0.66-1.25) mg/dL Est GFR (CKD-EPI)AfAm (>60 ml/min/1.73 sqM) Est GFR (CKD-EPI)NonAf (>60 ml/min/1.73 sqM) Glucose (74-99) mg/dL Calcium (8.4-10.2) mg/dL Total Bilirubin (0.2-1.3) mg/dL AST (17-59) U/L ALT (4-49) U/L Alkaline Phosphatase (38-126) U/L Troponin I (0.000-0.034) ng/mL Total Protein (6.3-8.2) g/dL Albumin (3.5-5.0) g/dL Coronavirus (PCR) Not Detected (Not Detectd) Disposition Clinical Impression: Hypertension, Shortness of breath Disposition: HOME SELF-CARE Condition: Good Instructions (If sedation given, give patient instructions): Hypertension (ED) Additional Instructions: Follow-up with primary care provider on Friday. If blood pressure is >160/100, you may take a second metoprolol. Return to the emergency Department if you experience new, concerning, or worsening symptoms. Is patient prescribed a controlled substance at d/c from ED?: No Referrals: Viktor Viera MD [Primary Care Provider] - 1-2 days
[2022-04-12 21:44] VITALS: BP 140/80; PULSE 68
== END 2022-04-12 21:45 | disposition home or self-care (01) ==
LOC: SUPCPDRO 17:40 → EC 17:40
DX: I10 Essential (primary) hypertension (principal); R06.02 Shortness of breath; K21.9 Gastro-esophageal reflux disease without esophagitis; F32.A Depression, unspecified; Z87.891 Personal history of nicotine dependence; Z20.822 Contact with and (suspected) exposure to COVID-19; Z79.82 Long term (current) use of aspirin; Z88.1 Allergy status to other antibiotic agents; Z91.018 Allergy to other foods; Z88.8 Allergy status to other drugs, medicaments and biological substances
CPT/HCPCS: 36415; 71046; 80053; 84484; 85025; 87635; 93005; 99284

== ENCOUNTER → 2022-10-28 | Outpatient (CLI) | payer MEDICARE, OTHER ==
[2022-10-29 01:53] LABS: HCT 37.9 % (39.6-50.0); MCH 29.7 pg (27.0-32.0); MCHC 31.7 d/dL (32.0-37.0); MCV 93.8 FL (80.0-97.0); Mean Platelet Volume 9.3 FL (9.5-12.2); NRBC Per 100 WBC 0 X 10*3/uL (0.00-0.01); Platelet Count 227 X 10*3/uL (140-440); RBC 4.04 X 10*6/uL (4.40-5.60); RDW 12.8 % (11.5-14.5); WBC 6.78 X 10*3/uL (4.50-10.00)
[2022-10-29 02:45] LABS: BUN/Creat Ratio 23.62 Ratio (12.00-20.00); Blood Urea Nitrogen 30.7 mg/dL (9.0-27.0); Calcium 9.9 mg/dL (8.7-10.3); Carbon Dioxide 28.3 mmol/L (21.6-31.8); Chloride 99 mmol/L (96-109); Glucose 94 mg/dL (70-110); Potassium 4.5 mmol/L (3.5-5.5); Sodium 138 mmol/L (135-145)
== END | disposition home or self-care (01) ==
LOC: LABWHC1 16:13
PROVIDERS: ATTEND Internal Medicine Cardiovascular Disease
DX: R06.02 Shortness of breath (principal)
CPT/HCPCS: 36415; 80048; 85027

== ENCOUNTER 2022-11-06 07:18 | Day surgery (SDC) | payer MEDICARE, OTHER ==
[2022-11-06] MEDS ORDERED: SODIUM CHLORIDE 0.9% 500 ML 500 ML IV ONE (07:33)
[2022-11-06 07:43] VITALS: RESP 16; TEMP 97.3
[2022-11-06] MEDS ORDERED: fentaNYL (PF) 50 MCG/ML 2 ML AMP ONE (09:34)
[2022-11-06] MEDS: BENZOCAINE SPRAY 1 CAN TOPICAL ONE ×2 (10:11→10:17)
[2022-11-06] MEDS ORDERED: fentaNYL (PF) 50 MCG/ML 2 ML AMP IVP ONE (10:31)
[2022-11-06] MEDS ORDERED: MIDAZOLAM 2 MG/2 ML VIAL IVP ONE (10:31)
[2022-11-06 12:11] VITALS: BP 125/63; PULSE 69
--- NOTE | 2022-12-05 10:35 | PCN ---
PROCEDURE NOTE PROCEDURE PERFORMED: Transesophageal echo. INDICATION: Shortness of breath in a patient with known mitral regurgitation status post mitral valve repair. PROCEDURE NOTE: After obtaining informed consent, transesophageal echocardiogram was performed in left lateral position using an Omniplane probe, local and IV sedation were obtained using Xylocaine spray, intravenous Versed and fentanyl. The patient tolerated the procedure well without any obvious immediate complications. The patient received moderate conscious sedation. Total sedation time was 10 minutes. FINDINGS: Mitral valve. The patient underwent mitral valve repair with ring placement. There is moderate to severe mitral regurgitation noted. Left atrium and right atrium appear enlarged. Left ventricle has normal size with preserved LV function with an ejection fraction of 50%. There is no evidence of [id number] shunt by color-flow Doppler or [id number] shunt by agitated saline contrast study. Aortic valve shows sclerotic changes with mild aortic regurgitation. There is mild tricuspid regurgitation. CONCLUSION: Moderate eccentric jet of mitral regurgitation. PLAN: The patient will undergo cardiac catheterization to see if he has significant obstructive CAD. MMODL / IJN: [id number] /
== END 2022-11-06 11:44 | disposition home or self-care (01) ==
LOC: CATHCVL 07:18
PROVIDERS: ATTEND Internal Medicine Cardiovascular Disease
DX: I34.0 Nonrheumatic mitral (valve) insufficiency (principal); I25.10 Atherosclerotic heart disease of native coronary artery without angina pectoris; I10 Essential (primary) hypertension; Z95.1 Presence of aortocoronary bypass graft; Z79.891 Long term (current) use of opiate analgesic; Z87.891 Personal history of nicotine dependence; Z79.82 Long term (current) use of aspirin; Z79.899 Other long term (current) drug therapy
CPT/HCPCS: 93312; 93320; 93325; J2250; J3010

== ENCOUNTER → 2022-12-05 | Outpatient (CLI) | payer MEDICARE, OTHER ==
[2022-12-05 16:58] LABS: HCT 34.9 % (39.6-50.0); HGB 11.7 d/dL (13.0-17.0); MCH 30.5 pg (27.0-32.0); MCHC 33.5 d/dL (32.0-37.0); MCV 90.9 FL (80.0-97.0); NRBC Per 100 WBC 0 X 10*3/uL (0.00-0.01); Platelet Count 241 X 10*3/uL (140-440); RBC 3.84 X 10*6/uL (4.40-5.60); RDW 13.2 % (11.5-14.5); WBC 6.63 X 10*3/uL (4.50-10.00)
[2022-12-05 22:03] LABS: Blood Urea Nitrogen 26.6 mg/dL (9.0-27.0); Carbon Dioxide 26.4 mmol/L (21.6-31.8); Chloride 100 mmol/L (96-109); Potassium 4.5 mmol/L (3.5-5.5); Sodium 137 mmol/L (135-145)
== END | disposition home or self-care (01) ==
LOC: LABPAT 11:50
PROVIDERS: ATTEND Internal Medicine Cardiovascular Disease
DX: Z01.812 Encounter for preprocedural laboratory examination (principal); R06.02 Shortness of breath
CPT/HCPCS: 80051; 82565; 84520; 85027

== ENCOUNTER 2022-12-13 06:54 | Day surgery (SDC) | payer MEDICARE, OTHER ==
[~2022-12-13 06:54] MED LIST changes: +ALPRAZolam 0.25 MG TAB PO PRN; +ALPRAZolam 0.5 MG TAB PO PRN; +HEPARIN SODIUM,PORCINE (1 ML) 2,500 UNIT in SODIUM CHLORIDE 0.9% 250 ML IRRIGATION PRN; +HEPARIN SODIUM,PORCINE 10,000 UNIT in SODIUM CHLORIDE 0.9% 1,000 ML IRRIGATION PRN; +NITROGLYCERIN SL TABS 0.4 MG TAB SUBLINGUAL PRN; +SODIUM CHLORIDE 0.9% 1,000 ML in EMPTY BAG 1 BAG IV SCH; -SODIUM CHLORIDE 0.9% 500 ML 500 ML in EMPTY BAG 1 BAG IV PRN; -ZOLEDRONIC ACID 5 MG in SODIUM CHLORIDE 0.9% 100 ML IV NR
[2022-12-13] MEDS ORDERED: ASPIRIN 325 MG TAB PO ONE (07:00)
[2022-12-13] MEDS ORDERED: ATORVASTATIN 80 MG TAB PO ONE (07:00)
[2022-12-13 08:00] VITALS: RESP 16; TEMP 97.1
[2022-12-13] MEDS ORDERED: LIDOCAINE 1% INJ 10MG/ML (20 ML MDV) ONE (10:02)
[2022-12-13] MEDS ORDERED: fentaNYL (PF) 50 MCG/ML 2 ML AMP ONE (10:02)
[2022-12-13] MEDS ORDERED: LIDOCAINE 1% INJ 10MG/ML (30 ML VIAL-PF) SQ ONE (10:05)
[2022-12-13] MEDS ORDERED: fentaNYL (PF) 50 MCG/1 ML VIAL IVP ONE (10:06)
[2022-12-13] MEDS ORDERED: MIDAZOLAM 2 MG/2 ML VIAL IVP ONE (10:06)
[2022-12-13] MEDS ORDERED: IOPAMIDOL-370 100ML BTL INJ ONE (10:46)
[2022-12-13] MEDS ORDERED: RX INFO: IV CONTRAST WAS GIVEN 1 EACH MISC MISCELLANE PRN (12:29)
[2022-12-13] MEDS ORDERED: SODIUM CHLORIDE 0.9% 1,000 ML IV SCH (12:30)
[2022-12-13 22:06] VITALS: BP 138/71; PULSE 58
== END 2022-12-13 17:44 | disposition home or self-care (01) ==
LOC: CATHCVL 06:54
PROVIDERS: ATTEND Internal Medicine Cardiovascular Disease
DX: I34.0 Nonrheumatic mitral (valve) insufficiency (principal); E78.5 Hyperlipidemia, unspecified; F17.210 Nicotine dependence, cigarettes, uncomplicated; Z82.49 Family history of ischemic heart disease and other diseases of the circulatory system; Z79.82 Long term (current) use of aspirin; Z79.899 Other long term (current) drug therapy
CPT/HCPCS: 93459; C1760; C1769 ×2; C1894; J2250; J2001; Q9967; J3010